=== PATIENT | female | born 1965 | race Caucasian/White ===

== ENCOUNTER 2018-01-01 22:01 | Emergency (ER) | payer OTHER ==
[~2018-01-01] VITALS: Ht 154.9 cm; Wt 77.1 kg
--- NOTE | 2018-01-01 22:40 | NUR ---
Patient walked into ER c/o black/red stool for several weeks but worst in the last 2 weeks
--- NOTE | 2018-01-01 22:42 | NUR ---
Dr Paulino into eval patient
[2018-01-01] MEDS ORDERED: IV NORMAL SALINE 1000 ML BAG IV ONE (23:00)
[2018-01-01 23:17] LABS: BASOPHILS # (AUTO) 0.1 K/uL (0.0-8.0); BASOPHILS % (AUTO) 1.7 % (0.0-2.0); EOSINOPHILS # (AUTO) 0.4 K/uL (0.0-0.7); EOSINOPHILS % (AUTO) 4.3 % (0.0-7.0); HEMATOCRIT 38.9 % (31.2-41.9); HEMOGLOBIN 12.5 g/dL (10.9-14.3); LYMPHOCYTES # (AUTO) 2.7 K/uL (20.0-40.0); MEAN CORPUSCULAR HEMOGLOBIN 23.4 uug (24.7-32.8); MEAN CORPUSCULAR HGB CONC 32 g/dL (32.3-35.6); MEAN CORPUSCULAR VOLUME 72.6 fL (75.5-95.3); MONOCYTES # (AUTO) 1.3 K/uL (2.0-10.0); MONOCYTES % (AUTO) 14.7 % (0.0-11.0); NEUTROPHILS % (AUTO) 47.3 % (38.5-71.5); PLATELET COUNT (AUTO) 268 K/uL (179-408); RED BLOOD CELL COUNT(AUTO) 5.36 MIL/uL (3.63-4.92); WHITE BLOOD COUNT (AUTO) 8.5 K/uL (3.8-11.8)
[2018-01-01 23:24] LABS: *BILIRUBIN,URIN NEGATIVE (NEGATIVE); *BLOOD, URINE NEGATIVE (NEGATIVE); *COLOR,URINE YELLOW (YELLOW); *KETONES,URINE NEGATIVE (NEGATIVE); *PROTEIN,URINE NEGATIVE (NEGATIVE); *UROBILINOGEN,URINE 0.2 E.U./dl (NORMAL); LEUKOCYTE ESTERASE ,URINE 2+ (NEGATIVE); NITRITE, URINE NEGATIVE (NEGATIVE); UGLUCOSE NEGATIVE (NEGATIVE)
[2018-01-01 23:26] LABS: CREATININE 0.6 mg/dL (0.6-1.3); POTASSIUM 3.6 mmol/L (3.5-5.1)
[2018-01-01 23:28] LABS: *CLARITY,URINE HAZY (CLEAR)
[2018-01-01 23:31] LABS: BACTERIA,URINE FEW /HPF (NONE SEEN); SQUAMOUS EPITHELIAL CELL,UR MODERATE /HPF (NONE SEEN); WBC,URINE 20-50 /HPF (0-3)
[2018-01-01 23:42] LABS: BILIRUBIN,DIRECT 0.1 mg/dL (0.0-0.2); BILIRUBIN,TOTAL 0.2 mg/dL (0.2-1.0); TOTAL PROTEIN, SERUM 7.6 g/dL (6.4-8.2)
--- NOTE | 2018-01-01 23:50 | NUR ---
DR SHUKLA SPOKE WITH DR EMANUEL. DR EMANUEL REQUESTING ATIENT TO BE ADMITTED TO HOSPITALIST
[2018-01-02] MEDS ORDERED: CEFTRIAXONE 500 MG VIAL IV ONE
--- NOTE | 2018-01-02 00:05 | NUR ---
DR SHUKLA SPOKE WITH DR MONI BREWER REGARDING PATIENT
[2018-01-02] MEDS ORDERED: ALBU8.5H8 IH (00:14)
[2018-01-02] MEDS ORDERED: CELE200C PO (00:14)
[2018-01-02] MEDS ORDERED: DESL5TAB PO (00:14)
[2018-01-02] MEDS ORDERED: [UNRECOGNIZED DRUG - OTHER] PO (00:14)
[2018-01-02] MEDS ORDERED: TIZA4TAB4 PO (00:14)
[2018-01-02] MEDS ORDERED: TIMO5SOL11 OP (00:14)
[2018-01-02] MEDS ORDERED: OMEP40CA37 PO (00:14)
[2018-01-02] MEDS ORDERED: CYCL5TAB PO (00:14)
[2018-01-02] MEDS ORDERED: SUCR1TAB PO (00:14)
[2018-01-02] MEDS ORDERED: CLID1CAP PO (00:14)
[2018-01-02] MEDS ORDERED: MESA800T5 PO (00:14)
[2018-01-02] MEDS ORDERED: PROM25TA15 PO (00:14)
[2018-01-02] MEDS ORDERED: TOPI25TA49 PO (00:14)
[2018-01-02] MEDS ORDERED: HYDR-3980 PO (00:14)
[2018-01-02] MEDS ORDERED: POLY17PO4 PO (00:14)
[2018-01-02] MEDS ORDERED: FAMO40TA7 PO (00:14)
[2018-01-02] MEDS ORDERED: FLUT1DIS29 IH (00:14)
[2018-01-02] MEDS ORDERED: FURO20TA4 PO (00:14)
[2018-01-02] MEDS ORDERED: HYDR-3026 PO (00:14)
[2018-01-02] MEDS ORDERED: [UNRECOGNIZED DRUG - OTHER] PO (00:14)
[2018-01-02] MEDS ORDERED: POTA10TA10 PO (00:14)
[2018-01-02] MEDS ORDERED: HYOS0.1275 SL (00:14)
[2018-01-02] MEDS ORDERED: CYAN10009 PO (00:14)
[2018-01-02] MEDS ORDERED: IMIP25TA PO (00:14)
[2018-01-02] MEDS ORDERED: PENT100C9 PO (00:14)
[2018-01-02] MEDS ORDERED: PRED2.5T PO (00:14)
[2018-01-02] MEDS ORDERED: [UNRECOGNIZED DRUG - CODE] PO (00:14)
[2018-01-02] MEDS ORDERED: [UNRECOGNIZED DRUG - OTHER] PO (00:14)
[2018-01-02] MEDS ORDERED: FLUT1DIS28 IH (00:14)
[2018-01-02] MEDS ORDERED: ONDA4TAB10 PO (00:14)
[2018-01-02] MEDS ORDERED: CEFTRIAXONE 500 MG VIAL ONE (00:20)
--- NOTE | 2018-01-02 00:52 | NUR ---
PATIENT TOLERATED ANTIBIOTIC THERAPY WITH NO REACTION
--- NOTE | 2018-01-02 01:01 | NUR ---
IV removed. Catheter intact and site benign. Pressure and 4x4 gauze applied to site. No bleeding noted.
[2018-01-02 01:02] VITALS: BP 144/85
--- NOTE | 2018-01-02 01:04 | NUR ---
Patient discharged to home in stable conditon WITH TAKING PATIENT HOME. Written and verbal after care instructions given. Patient verbalizes understanding of instructions. WALKED OUT OF ER WITH STEADY GAIT
== END 2018-01-02 01:09 | disposition home or self-care (01) ==
LOC: ER 22:01
DX: E86.0 Dehydration (principal); N39.0 Urinary tract infection, site not specified; J45.909 Unspecified asthma, uncomplicated; E11.9 Type 2 diabetes mellitus without complications; Z88.1 Allergy status to other antibiotic agents; Z88.8 Allergy status to other drugs, medicaments and biological substances; Z88.2 Allergy status to sulfonamides
CPT/HCPCS: 36415; 71045; 80048; 80076; 81001; 83690; 84484; 85025; 85730; 87086; 93005; 96361; 96374; 99285; A4663; J0696; J3490; J7030; 70030-TC